=== PATIENT | female | born 1975 | race Caucasian/White ===

== ENCOUNTER → 2017-02-22 | Outpatient (CLI) | payer OTHER ==
[~2017-02-22] MED LIST: ACCUNEB SO1.25 MG/1 INH; CIPRO500 MG PO; FLEXERIL PO; LEVOTHYROXIN0.175 MG PO; NAPROSYN500 MG PO; PERCOCET PO; TRAMADOL 50 MG50 MG PO; ZOFRAN ODT4 MG DISSOLVE
== END ==
LOC: MRI 10:27
DX: S89.91XA Unspecified injury of right lower leg, initial encounter (principal); M25.461 Effusion, right knee; X58.XXXA Exposure to other specified factors, initial encounter; Y93.89 Activity, other specified; Y92.89 Other specified places as the place of occurrence of the external cause; Y99.8 Other external cause status

== ENCOUNTER → 2017-05-03 | Outpatient (CLI) | payer OTHER ==
[~2017-05-03] MED LIST changes: +IBUPROFEN 600600 M1 PO; +TIZANIDINE HCL4 MG PO; +ULTRAM 50MG TAB50 MG PO
== END ==
LOC: MRI 14:14
DX: G93.9 Disorder of brain, unspecified (principal); R51 Headache; M54.2 Cervicalgia

== ENCOUNTER → 2018-04-07 | Emergency (ER) | payer OTHER ==
[~2018-04-07] VITALS: Ht 170.2 cm; Wt 82.6 kg
[~2018-04-07] MED LIST changes: +CLEOCIN HCL150 MG PO; +IBUPROFEN 800800 M1 PO; +LINZESS145 MCG PO; +NORFLEX100 MG PO; +PERCOCET 5-3251 EACH PO; +SYNTHROID175 MCG PO; +VITAMIN D2000 UNIT PO
[2018-04-07 19:35] LABS: ABSOLUTE NEUTROPHILS 4.7 thou/uL (1.4-8.2); BASOPHILS 0.5 % (0.0-2.0); EOSINOPHILS 1.5 % (0.0-3.0); HEMATOCRIT 38.4 % (37.0-47.0); HEMOGLOBIN 13.2 gm/dL (12.0-15.0); LYMPHOCYTES 34.5 % (24.0-44.0); MCH 30.8 pg (26.0-34.0); MCHC 34.5 g/dL (28.0-37.0); MCV 89.4 fL (80.0-100.0); MONOCYTES 6.4 % (1.0-8.0); PLATELET COUNT 236 thou/uL (150-400); POLYS 57.1 % (36.0-66.0); RBC 4.29 mil/uL (4.20-5.00); RDW 12.6 % (10.5-14.5); WBC 8.2 thou/uL (4.0-11.0)
[2018-04-07 19:45] LABS: CALCIUM 9.5 mg/dL (8.5-10.1); CREATININE 0.8 mg/dL (0.6-1.0); POTASSIUM 3.8 mmol/L (3.5-5.1)
[2018-04-07 19:50] LABS: PROTIME 10.1 Seconds (9.3-11.4)
[2018-04-07 21:43] VITALS: BP 120/72
== END ==
LOC: ER 17:39
PROVIDERS: Emergency Medicine
DX: R51 Headache (principal); E34.8 Other specified endocrine disorders; R42 Dizziness and giddiness; F17.210 Nicotine dependence, cigarettes, uncomplicated; Z88.8 Allergy status to other drugs, medicaments and biological substances; Z88.0 Allergy status to penicillin; M19.90 Unspecified osteoarthritis, unspecified site; Z87.442 Personal history of urinary calculi; Z90.89 Acquired absence of other organs

== ENCOUNTER 2018-05-31 17:33 | Emergency (ER) | payer OTHER ==
[~2018-05-31] VITALS: Ht 170.2 cm; Wt 84.8 kg
--- NOTE | ~2018-05-31 | EKG ---
[address] [place] [address] ELECTROCARDIOGRAM REPORT Name: SLICK VERAS [facility] [id number] Admission: 05/31/18 Attend Phys: Discharge: 05/31/18 Date of : 77 Report #: [id number] THIS REPORT FOR: //name// 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
--- NOTE | ~2018-05-31 | EKG ---
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
[2018-05-31 19:35] LABS: ABSOLUTE NEUTROPHILS 9.8 thou/uL (1.4-8.2); BASOPHILS 0.8 % (0.0-2.0); HEMATOCRIT 39.7 % (37.0-47.0); HEMOGLOBIN 13.7 gm/dL (12.0-15.0); LYMPHOCYTES 23.4 % (24.0-44.0); MCH 31.5 pg (26.0-34.0); MCHC 34.5 g/dL (28.0-37.0); MCV 91.4 fL (80.0-100.0); MONOCYTES 7.3 % (1.0-8.0); PLATELET COUNT 309 thou/uL (150-400); POLYS 67.5 % (36.0-66.0); RBC 4.34 mil/uL (4.20-5.00); WBC 14.5 thou/uL (4.0-11.0)
[2018-05-31 19:46] LABS: ANION GAP 9 mmol/L (7-16); BUN 9 mg/dL (7-18); CALCIUM 9.7 mg/dL (8.5-10.1); CHLORIDE 103 mmol/L (98-107); CO2 29 mmol/L (21-32); GLUCOSE 72 mg/dL (74-106); POTASSIUM 3.3 mmol/L (3.5-5.1); SODIUM 141 mmol/L (136-145)
[2018-05-31 19:51] LABS: ALBUMIN 4.1 g/dL (3.4-5.0); SGOT 22 U/L (15-37); SGPT 55 U/L (30-65); TOTAL BILIRUBIN 0.3 mg/dL (<0.1-1.0); TOTAL PROTEIN 7.9 g/dL (6.4-8.2); TROPONIN-I <0.06 ng/mL (<0.06)
[2018-05-31 22:07] LABS: URINE BILIRUBIN NEGATIVE (Negative); URINE BLOOD 1+ (Negative); URINE CLARITY CLEAR; URINE COLOR YELLOW; URINE GLUCOSE-RANDOM* NEGATIVE (Negative); URINE KETONES NEGATIVE (Negative); URINE NITRITE-REFLEX NEGATIVE (Negative); URINE PROTEIN (DIPSTICK) NEGATIVE (Negative); URINE SPECIFIC GRAVITY <= 1.005 (1.005-1.035); URINE UROBILINOGEN 0.2 E.U./dl (0.2-1.0)
[2018-05-31 22:08] LABS: URINE LEUKOCYTES-REFLEX 1+ (Negative)
[2018-05-31 22:17] LABS: CASTS None Seen /LPF (None Seen); CRYSTALS None Seen /LPF (None Seen); SQUAMOUS 4-10 Moderate /LPF (0-3); URINE RBC 3-10 Few /HPF (0-2)
[2018-05-31 22:18] LABS: BACTERIA-REFLEX 1-9 Few /HPF (None Seen); URINE WBC-REFLEX 0-5 Rare /HPF (0-5)
[2018-05-31] MEDS ORDERED: TRAMADOL 50 MG50 MG PO (22:32)
[2018-05-31] MEDS ORDERED: VENTOLIN HFA 1818 GM INH (22:38)
[2018-05-31] MEDS ORDERED: TESSALON PERLE100 MG PO (22:38)
[2018-05-31] MEDS ORDERED: SYNTHROID200 MCG PO (22:40)
[2018-05-31 23:16] VITALS: BP 93/60
== END 2018-05-31 23:15 | disposition home or self-care (01) ==
LOC: ER 17:33
PROVIDERS: Physician Assistant
DX: J20.8 Acute bronchitis due to other specified organisms (principal); B97.89 Other viral agents as the cause of diseases classified elsewhere; E87.6 Hypokalemia; E03.9 Hypothyroidism, unspecified; F17.210 Nicotine dependence, cigarettes, uncomplicated; M19.90 Unspecified osteoarthritis, unspecified site; Z88.8 Allergy status to other drugs, medicaments and biological substances; Z86.718 Personal history of other venous thrombosis and embolism; Z88.0 Allergy status to penicillin; Z90.89 Acquired absence of other organs; Z87.442 Personal history of urinary calculi

== ENCOUNTER 2018-06-02 22:53 | Inpatient (IN) | payer OTHER ==
[~2018-06-02] VITALS: Ht 170.2 cm; Wt 84.8 kg
--- NOTE | ~2018-06-02 | 2DMMODE ---
[facility] [address] [place] [address] 2 D/M-MODE ECHOCARDIOGRAM Name: SILCK VERAS Room #: 209-P ADM IN M.R.#: [id number] Admission: 06/03/18 Attend Phys: Alannah Baker Discharge: Date of : 77 Date of Service: 06/04/1830 Report #: [id number] THIS REPORT FOR: //name// APPROVED REPORT Study performed: 06/04/2018 08:37:53 EXAM: Comprehensive 2D, Doppler, and color-flow Echocardiogram Patient Location: Echo lab Room #: 209 Status: routine BSA: 1.97 HR: 72 bpm BP: 106/67 mmHg Rhythm: NSR Other Information Study Quality: Adequate Indications Dyspnea Chest Pain 2D Dimensions RVDd: 31.92 mm IVSd: 8.28 (7-11mm) LVOT Diam: 19.56 (18-24mm) LVDd: 54.10 mm PWd: 7.71 (7-11mm) Ascending Ao: 30.69 (22-36mm) LVDs: 34.44 (25-40mm) Aortic Root: 27.39 mm IVC: 18.00 mm Volumes Left Atrial Volume (Systole) Single Plane 4CH: 70.42 mL Single Plane 2CH: 58.26 mL LA ESV Index: 36.00 mL/m2 Aortic Valve AoV Peak Christopher.: 1.37 m/s AO Peak Gr.: 7.48 mmHg LVOT Max P.44 mmHg LVOT Max V: 1.17 m/s MIKE Vmax: 2.56 cm2 Mitral Valve E/A Ratio: 1.2 MV Decel. Time: 229.53 ms [facility] [address] [place] [address] 2 D/M-MODE ECHOCARDIOGRAM Name: RITOSLICK R Room #: 209-P [facility].#: [id number] Admission: 06/03/18 Attend Phys: Alannah Baker Discharge: Date of : 77 Date of Service: 06/04/18 0930 Report #: [id number] E Max Christopher.: 0.87 m/s MV A Christopher.: 0.71 m/s MV PHT: 66.56 ms IVRT: 64.59 ms Pulmonary Valve PV Peak Christopher.: 1.04 m/s PV Peak Gr.: 4.34 mmHg Pulmonary Vein P Vein S: 0.67 m/s P Vein A: 0.20 m/s P Vein D: 0.39 m/s P Vein A Dur.: 96.9 msec P Vein S/D Ratio: 1.72 Left Ventricle The left ventricle is normal size. There is normal LV segmental wall motion. There is normal left ventricular wall thickness. Left ventricular systolic function is normal. The left ventricular ejection fraction is within the normal range. LVEF is 60-65%. The left ventricular diastolic function is normal. Right Ventricle The right ventricle is normal size. The right ventricular systolic function is normal. Atria The left atrium size is normal. The right atrium size is normal. Aortic Valve The aortic valve is normal in structure. No aortic regurgitation is present. There is no aortic valvular stenosis. Mitral Valve The mitral valve is normal in structure. There is no mitral valve regurgitation noted. No evidence of mitral valve stenosis. Tricuspid Valve The tricuspid valve is normal in structure. There is no tricuspid valve regurgitation noted. Pulmonic Valve The pulmonary valve is normal in structure. Trace pulmonic regurgitation. Great Vessels The aortic root is normal in size. IVC is normal in size and [facility] [address] [place] [address] 2 D/M-MODE ECHOCARDIOGRAM Name: SLICK VERAS Room #: 209-P [facility] IN .R.#: [id number] Admission: 06/03/18 Attend Phys: Alannah Baker Discharge: Date of : 77 Date of Service: 06/04/18929 Report #: [id number] collapses >50% with inspiration. Pericardium There is no pericardial effusion. <Conclusion> 1. Normal echocardiogram with Doppler. EF 65% 2. No pericardial effusion <ELECTRONICALLY SIGNED> By: Tim Núñez MD, FACC 06/04/18929 9 9 Tim Núñez MD, [facility]IN [facility] /INF
--- NOTE | ~2018-06-02 | EKG ---
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: MARIO : 1975 Requested By: Alannah Dupree Order Number: [id number] MD: Tim Núñez Measurements Intervals [place] Rate: 57 P: 52 [place]: 141 QRS: 39 QRSD: 91 T: 3 QT: 439 QTc: 428 Interpretive Statements Sinus bradycardia Abnormal R-wave progression, early transition Compared to ECG 06/03/2018 00:00:29 ST (T wave) deviation less prominent Electronically Signed On 06-04-2018 8:40:06 CDT by Tim Núñez [email or web address] <ELECTRONICALLY SIGNED> By: Tim Núñez MD, [facility] 06/04/18 0840 3 3 Tim Núñez MD, [facility] /EPI
--- NOTE | ~2018-06-02 | EKG ---
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
--- NOTE | ~2018-06-02 | CATHLAB ---
[facility] [address] [place] [address] INVASIVE PROCEDURE REPORT Name: SLICK VERAS Room #: 209-P DIS IN .R.#: [id number] Admission: 06/03/18 Attend Phys: Alannah Baker Discharge: 06/05/18 Date of : 77 Date of Service: 06/05/18 1246 Report #: [id number] THIS REPORT FOR: //name// APPROVED REPORT Study performed: 06/05/2018 07:28:51 Patient Details Patient Status: In-Patient Room #: 209 The patient is a 43 year-old female Event Personnel Fuentes Castrejon Counselor Supervisor, Ledy Aggarwal, MARKETING SENIOR RECRUITER Monitor, Adis Beverly RN RN, Lito Calderón RN, Jose Chiang Procedures Performed Art Access - R femoral artery* Left Heart Cath w/or w/o Coronaries [id number] [facility] [address] Initial Mod Sed Same Phys/QHP Gr5y [id number] Hemostasis with Manual pressure Indication Syncope, Positive stress test, Chest pain Risk Factors Hypercholesterolemia, Tobacco History () Procedure Narrative The Right Groin^ was infiltrated with 1% Lidocaine subcutaneous anesthesia. A PINNACLE 4FR Sheath #[id number] sheath was inserted into the RFA^. Coronary angiography was performed using coronary diagnostic catheters. The right coronary system was accessed and visualized with a JR4 catheter. The left coronary system was accessed and visualized with a JL4 catheter. The left ventricle was accessed and visualized with a angled pigtail catheter. Left ventricular/Aortic Valve gradient assessed via catheter pullback. Left ventriculogram was performed in 30 degree projection. Hemostasis was obtained with manual pressure following sheath removal without any complications. The patient tolerated the procedure well and there were no complications associated with the procedure. There was no hematoma. Intraoperative Conscious Sedation Sedation start time: 08:30 Case end Time: 08:57 [facility] [address] [address] INVASIVE PROCEDURE REPORT Name: SLICK VERAS Room #: 209-P [facility] IN M.R.#: [id number] Admission: 06/03/18 Attend Phys: Alannah Baker Discharge: 06/05/18 Date of : 77 Date of Service: 06/05/18 1246 Report #: [id number] Fentanyl 50 mcg Versed 1 mg Fluoro Time: 2.17 minutes Dose: DAP 3040.80 cGycm2 390 mGy Contrast Type and Amount: Visipaque 65 ml Coronary Angiography The patient's coronary anatomy is right dominant. Diagnostic Cath Left Main Patent vessel, with no flow-limiting lesions. LAD The LAD is a moderate size caliber vessel, traveling down the anterior wall and terminating at the apex. There are no flow-limiting lesions in the LAD. Diagonal 1 Small-caliber vessel, with no flow-limiting lesions. Circumflex Supplies one OM vessel. There are no flow-limiting lesions. OM1 Moderate size caliber vessel, supplies multiple branches as it travels down the lateral wall. There are no flow-limiting lesions. Right Coronary Dominant vessel, with no flow-limiting lesions. R PDA Patent vessel, with no flow-limiting lesions. RPLV Patent vessel, with no flow-limiting lesions. Left Ventriculography The left ventricle is normal in size with normal contractility. The left ventricular ejection fraction is estimated to be 55-60%. Hemodynamics The aortic pressure is 116/73 mmHg with a mean of 93 mmHg. The left ventricular pressure is 129/17 mmHg with a mean of mmHg. The left ventricular end diastolic pressure is 24 mmHg. Conclusion 1. Angiographically normal coronary arteries. 2. Normal LV systolic function. 3. Recommend medical therapy. <ELECTRONICALLY SIGNED> By: Fuentes Castrejon MD 06/05/18 1246 1246 1246 Fuentes Castrejon MD /INF
--- NOTE | ~2018-06-02 | EKG ---
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
--- NOTE | ~2018-06-02 | EKG ---
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: JENNIFER : 1975 Requested By: Brett Lopez Order Number: [id number] MD: Lei Gill Measurements Intervals [place] Rate: 90 P: 51 NE: 143 QRS: 17 QRSD: 94 T: -36 QT: 370 QTc: 453 Interpretive Statements Sinus rhythm Abnormal R-wave progression, early transition Borderline repolarization abnormality Compared to ECG 05/31/2018 21:36:24 No significant changes Electronically Signed On 06-03-2018 13:28:29 CDT by Lei Gill [email or web address] <ELECTRONICALLY SIGNED> By: Lei Gill MD 06/03/18 1328 0000 0000 Lei Gill MD /[place]
[~2018-06-02 22:53] MED LIST changes: +SYNTHROID200 MCG PO; +TESSALON PERLE100 MG PO; +VENTOLIN HFA 1818 GM INH
[2018-06-02 23:10] VITALS: BP 142/90
[2018-06-02] MEDS ORDERED: LOPRESSOR25 PO (23:15)
[2018-06-02 23:29] LABS: HEMATOCRIT 37.9 % (37.0-47.0); MCH 31.2 pg (26.0-34.0); MCHC 34.4 g/dL (28.0-37.0); MCV 90.7 fL (80.0-100.0); RBC 4.18 mil/uL (4.20-5.00); RDW 13.2 % (10.5-14.5); WBC 13.8 thou/uL (4.0-11.0)
[2018-06-02 23:33] LABS: ANION GAP 8 mmol/L (7-16); BUN 13 mg/dL (7-18); CHLORIDE 101 mmol/L (98-107); CO2 27 mmol/L (21-32); CREATININE 1.1 mg/dL (0.6-1.0); GLUCOSE 101 mg/dL (74-106); POTASSIUM 3.3 mmol/L (3.5-5.1); SODIUM 136 mmol/L (136-145)
[2018-06-02 23:41] LABS: ALBUMIN 4.2 g/dL (3.4-5.0); SGOT 23 U/L (15-37); SGPT 46 U/L (30-65); TOTAL BILIRUBIN 0.4 mg/dL (<0.1-1.0); TOTAL PROTEIN 7.9 g/dL (6.4-8.2); TROPONIN-I <0.06 ng/mL (<0.06)
[2018-06-03] VITALS (7 sets, daily range): BP systolic 99–136; BP diastolic 69–91
[2018-06-03 01:35] LABS: PROTIME 9.8 Seconds (9.3-11.4)
[2018-06-03] MEDS ORDERED: PERCOCET 10-321 EACH PO (02:24)
[2018-06-03] MEDS ORDERED: KLOR-CON 1010 MEQ PO (02:25)
[2018-06-03] MEDS ORDERED: REMERON15 MG PO (02:32)
[2018-06-03] MEDS ORDERED: LEVOXYL175 MCG PO (04:49)
[2018-06-03 06:11] LABS: CHOLESTEROL 224 mg/dL (<200); HDL CHOLESTEROL 32 mg/dL (>40); LDL CHOLESTEROL 169 mg/dL (<100); TRIGLYCERIDE 116 mg/dL (<150); VLDL 23 mg/dL (<40)
[2018-06-03 06:12] LABS: SERUM ASSESSMENT Clear
[2018-06-04 00:01] VITALS: BP 131/91; BP 92/61
[2018-06-04 05:38] VITALS: BP 106/67
[2018-06-04 08:25] VITALS: BP 127/77
[2018-06-04 12:05] VITALS: BP 118/66
[2018-06-04 16:10] VITALS: BP 92/54
[2018-06-04 20:14] VITALS: BP 119/71
[2018-06-05 00:17] VITALS: BP 96/46
[2018-06-05] MEDS ORDERED: PREDNISONE 20 M20 MG PO (11:29)
[2018-06-05] MEDS ORDERED: LEVAQUIN 500 M500 M2 PO (11:29)
[2018-06-05 11:37] VITALS: BP 96/46
[2018-06-05 11:45] VITALS: BP 117/73
== END 2018-06-05 12:10 | disposition home or self-care (01) | DRG 282 ==
LOC: ER 22:53 → EROBS 06-03 00:15 → 2N 06-03 00:15
PROVIDERS: Emergency Medicine; Nurse Practitioner Acute Care
PROC: B2111ZZ Fluoroscopy of Multiple Coronary Arteries using Low Osmolar Contrast (ICD-10-PCS; principal; 2018-06-05)
PROC: B2151ZZ Fluoroscopy of Left Heart using Low Osmolar Contrast (ICD-10-PCS; principal; 2018-06-05)
PROC: 4A023N7 Measurement of Cardiac Sampling and Pressure, Left Heart, Percutaneous Approach (ICD-10-PCS; principal; 2018-06-05)
DX: I21.4 Non-ST elevation (NSTEMI) myocardial infarction (principal); E89.0 Postprocedural hypothyroidism; F17.210 Nicotine dependence, cigarettes, uncomplicated; M19.90 Unspecified osteoarthritis, unspecified site; J40 Bronchitis, not specified as acute or chronic; R09.02 Hypoxemia; R10.813 Right lower quadrant abdominal tenderness; E78.5 Hyperlipidemia, unspecified; E87.6 Hypokalemia; Z88.0 Allergy status to penicillin; Z88.8 Allergy status to other drugs, medicaments and biological substances; Z87.442 Personal history of urinary calculi; Z90.710 Acquired absence of both cervix and uterus; Z86.718 Personal history of other venous thrombosis and embolism; Z85.43 Personal history of malignant neoplasm of ovary; Z82.49 Family history of ischemic heart disease and other diseases of the circulatory system; Z71.6 Tobacco abuse counseling
CPT/HCPCS: 10081

== ENCOUNTER 2018-06-24 05:23 | Emergency (ER) | payer OTHER ==
[~2018-06-24] VITALS: Ht 170.2 cm; Wt 84.4 kg
--- NOTE | ~2018-06-24 | EKG ---
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 06/25/18 08 4 4 Tim Núñez MD, [facility] /EPI
[~2018-06-24 05:23] MED LIST changes: +KLOR-CON 1010 MEQ PO; +LEVAQUIN 500 M500 M2 PO; +LEVOXYL175 MCG PO; +LOPRESSOR25 PO; +PERCOCET 10-321 EACH PO; +PREDNISONE 20 M20 MG PO; +REMERON15 MG PO
[2018-06-24 06:06] LABS: BASOPHILS 0.5 % (0.0-2.0); EOSINOPHILS 2.6 % (0.0-3.0); HEMATOCRIT 38.4 % (37.0-47.0); HEMOGLOBIN 13.3 gm/dL (12.0-15.0); LYMPHOCYTES 39.6 % (24.0-44.0); MCH 31.8 pg (26.0-34.0); MCHC 34.8 g/dL (28.0-37.0); MCV 91.5 fL (80.0-100.0); MONOCYTES 6.2 % (1.0-8.0); PLATELET COUNT 275 thou/uL (150-400); POLYS 51.1 % (36.0-66.0); RBC 4.19 mil/uL (4.20-5.00); RDW 13.3 % (10.5-14.5); WBC 7.9 thou/uL (4.0-11.0)
[2018-06-24 06:18] LABS: APTT 30.3 Seconds (24.5-32.8)
[2018-06-24 06:22] LABS: ANION GAP 7 mmol/L (7-16); BUN 9 mg/dL (7-18); CALCIUM 9.5 mg/dL (8.5-10.1); CHLORIDE 103 mmol/L (98-107); CO2 30 mmol/L (21-32); GLUCOSE 95 mg/dL (74-106); POTASSIUM 3.8 mmol/L (3.5-5.1); SODIUM 140 mmol/L (136-145)
[2018-06-24 06:27] LABS: ALBUMIN 4.2 g/dL (3.4-5.0); MAGNESIUM 2.1 mg/dL (1.8-2.4); SGOT 19 U/L (15-37); SGPT 46 U/L (30-65); TOTAL BILIRUBIN 0.3 mg/dL (<0.1-1.0); TOTAL PROTEIN 7.6 g/dL (6.4-8.2); TROPONIN-I <0.06 ng/mL (<0.06)
[2018-06-24 06:37] LABS: D-DIMER 0.67 ug/mLFEU (0.19-0.50)
[2018-06-24 08:20] VITALS: BP 128/94
== END 2018-06-24 08:22 | disposition home or self-care (01) ==
LOC: ER 05:23
PROVIDERS: Emergency Medicine
DX: R09.02 Hypoxemia (principal); R07.9 Chest pain, unspecified; R06.02 Shortness of breath; M19.90 Unspecified osteoarthritis, unspecified site; E78.5 Hyperlipidemia, unspecified; E03.9 Hypothyroidism, unspecified; R12 Heartburn; Z86.718 Personal history of other venous thrombosis and embolism; Z85.43 Personal history of malignant neoplasm of ovary; Z90.710 Acquired absence of both cervix and uterus; F17.210 Nicotine dependence, cigarettes, uncomplicated; Z88.0 Allergy status to penicillin; Z88.5 Allergy status to narcotic agent

== ENCOUNTER 2018-06-28 16:39 | Emergency (ER) | payer OTHER ==
[~2018-06-28] VITALS: Ht 170.2 cm; Wt 84.8 kg
--- NOTE | ~2018-06-28 | EKG ---
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
[2018-06-28 17:20] LABS: ABSOLUTE NEUTROPHILS 4.6 thou/uL (1.4-8.2); BASOPHILS 0.4 % (0.0-2.0); EOSINOPHILS 1.1 % (0.0-3.0); HEMATOCRIT 40.6 % (37.0-47.0); LYMPHOCYTES 41.6 % (24.0-44.0); MCHC 34.4 g/dL (28.0-37.0); MCV 92.9 fL (80.0-100.0); MONOCYTES 4.4 % (1.0-8.0); PLATELET COUNT 319 thou/uL (150-400); POLYS 52.5 % (36.0-66.0); RBC 4.38 mil/uL (4.20-5.00); RDW 13.6 % (10.5-14.5); WBC 8.8 thou/uL (4.0-11.0)
[2018-06-28 17:25] LABS: ANION GAP 11 mmol/L (7-16); BUN 7 mg/dL (7-18); CALCIUM 9.9 mg/dL (8.5-10.1); CHLORIDE 103 mmol/L (98-107); CO2 26 mmol/L (21-32); GLUCOSE 125 mg/dL (74-106); POTASSIUM 3.6 mmol/L (3.5-5.1); SODIUM 140 mmol/L (136-145)
[2018-06-28 17:33] LABS: ALBUMIN 4.5 g/dL (3.4-5.0); LIPASE 134 U/L (73-393); SGOT 21 U/L (15-37); SGPT 44 U/L (30-65); TOTAL BILIRUBIN 0.3 mg/dL (<0.1-1.0); TOTAL PROTEIN 8.3 g/dL (6.4-8.2); TROPONIN-I <0.06 ng/mL (<0.06)
[2018-06-28 17:35] LABS: APTT 30.2 Seconds (24.5-32.8); D-DIMER 0.21 ug/mLFEU (0.19-0.50)
[2018-06-28] MEDS ORDERED: METOPROLOL TART25 MG PO (20:05)
[2018-06-28 20:50] VITALS: BP 131/77
== END 2018-06-28 20:51 | disposition home or self-care (01) ==
LOC: ER 16:39
PROVIDERS: Physician Assistant
DX: R06.02 Shortness of breath (principal); F17.210 Nicotine dependence, cigarettes, uncomplicated; M19.90 Unspecified osteoarthritis, unspecified site; E03.9 Hypothyroidism, unspecified; E78.5 Hyperlipidemia, unspecified; Z90.710 Acquired absence of both cervix and uterus; Z86.718 Personal history of other venous thrombosis and embolism; Z85.43 Personal history of malignant neoplasm of ovary; Z88.8 Allergy status to other drugs, medicaments and biological substances; Z88.0 Allergy status to penicillin; Z87.442 Personal history of urinary calculi; Z90.89 Acquired absence of other organs

== ENCOUNTER 2019-05-24 19:19 | Inpatient (IN) | payer OTHER ==
[~2019-05-24] VITALS: Ht 170.2 cm; Wt 88.9 kg
[~2019-05-24 19:19] MED LIST changes: +METOPROLOL TART25 MG PO
[2019-05-24 19:29] VITALS: BP 120/69
[2019-05-24 20:15] LABS: ABSOLUTE NEUTROPHILS 4.8 thou/uL (1.4-8.2); BASOPHILS 0.4 % (0.0-2.0); EOSINOPHILS 3.4 % (0.0-3.0); HEMATOCRIT 36.9 % (37.0-47.0); HEMOGLOBIN 12.4 gm/dL (12.0-15.0); LYMPHOCYTES 36.2 % (24.0-44.0); MCH 31.3 pg (26.0-34.0); MCHC 33.6 g/dL (28.0-37.0); MCV 93.2 fL (80.0-100.0); MONOCYTES 7.8 % (1.0-8.0); PLATELET COUNT 261 thou/uL (150-400); POLYS 52.2 % (36.0-66.0); RBC 3.96 mil/uL (4.20-5.00); RDW 12.5 % (10.5-14.5); WBC 9.2 thou/uL (4.0-11.0)
[2019-05-24 20:16] LABS: URINE BILIRUBIN NEGATIVE (Negative); URINE BLOOD 1+ (Negative); URINE CLARITY CLEAR; URINE COLOR YELLOW; URINE GLUCOSE-RANDOM* NEGATIVE (Negative); URINE KETONES NEGATIVE (Negative); URINE NITRITE-REFLEX NEGATIVE (Negative); URINE PROTEIN (DIPSTICK) NEGATIVE (Negative); URINE SPECIFIC GRAVITY 1.025 (1.005-1.035); URINE UROBILINOGEN 0.2 E.U./dl (0.2-1.0)
[2019-05-24 20:18] LABS: URINE LEUKOCYTES-REFLEX 1+ (Negative)
[2019-05-24 20:24] LABS: CASTS None Seen /LPF (None Seen); CRYSTALS None Seen /LPF (None Seen); SQUAMOUS 4-10 Moderate /LPF (0-3)
[2019-05-24 20:24] LABS: ANION GAP 9 mmol/L (7-16); BUN 11 mg/dL (7-18); CALCIUM 9.5 mg/dL (8.5-10.1); CHLORIDE 106 mmol/L (98-107); CO2 29 mmol/L (21-32); CREATININE 0.7 mg/dL (0.6-1.0); GLUCOSE 119 mg/dL (74-106); POTASSIUM 3.8 mmol/L (3.5-5.1); SODIUM 144 mmol/L (136-145)
[2019-05-24 20:25] LABS: URINE WBC-REFLEX 6-15 Few /HPF (0-5)
[2019-05-24 20:26] LABS: BACTERIA-REFLEX 1-9 Few /HPF (None Seen); URINE RBC 0-2 Rare /HPF (0-2)
[2019-05-24 20:35] LABS: TROPONIN-I <0.06 ng/mL (<0.06)
[2019-05-24 23:01] VITALS: BP 124/74
[2019-05-24 23:15] VITALS: BP 112/67
--- NOTE | 2019-05-24 23:31 | NUR ---
Pt. admitted to the unit from the emergency room accompanied by staff and daughter. She is alert and oriented. Admission assessment and history is completed. Pt. c/o pain to her neck and right side of abdomen. Spoke to Sarah SHIELDS was on the unit and she will put some orders in the computer.
[2019-05-24 23:40] VITALS: BP 119/78
[2019-05-25 03:14] VITALS: BP 125/81
[2019-05-25 05:37] LABS: HEMOGLOBIN 11.9 gm/dL (12.0-15.0); MCH 31.8 pg (26.0-34.0); MCV 93.4 fL (80.0-100.0); RBC 3.75 mil/uL (4.20-5.00); RDW 12.4 % (10.5-14.5); WBC 6.4 thou/uL (4.0-11.0)
--- NOTE | 2019-05-25 05:46 | NUR ---
Pt. rested quietly during at intervals during the night when checked on during frequent rounds. C/o indigestion and GI cocktail given (see emar) with relief. Pt. had pain meds jfor c/o pain to her neck and right side of abdomen (see emar) with some relief noted. Pt. c/o some weakness and encouraged to use call light when needing assistance.
[2019-05-25 05:53] LABS: CREATININE 0.6 mg/dL (0.6-1.0)
[2019-05-25 07:07] VITALS: BP 101/60
--- NOTE | 2019-05-25 11:55 | EKG ---
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 : 1975 Requested By: Lev Richmond Order Number: [id number] MD: Tim Núñez Measurements Intervals [place] Rate: 84 P: 64 [place]: 142 QRS: 39 QRSD: 89 T: 21 QT: 360 QTc: 426 Interpretive Statements Sinus rhythm Normal tracing Compared to ECG 06/28/2018 17:06:54 Sinus tachycardia no longer present ST (T wave) deviation no longer present Electronically Signed On 05-25-2019 11:55:16 CDT by Tim Núñez [email or web address] ��������������������������������������������� <ELECTRONICALLY SIGNED> ���������������������������������������� By: Tim Núñez MD, [facility] ��������������������������������������������� 05/25/19 1155 35 35 Tim Núñez MD, [facility] /EPI
[2019-05-25 13:55] VITALS: BP 100/60
[2019-05-25 16:16] VITALS: BP 117/69
--- NOTE | 2019-05-25 18:27 | NUR ---
PT HAS REPORTED RLQ ABD PAIN 8/10 THAT RADIATES AROUND TO BACK...SHE ALSO HAS CHRONIC HEADACHES AND NECK PAIN...
[2019-05-25 21:13] VITALS: BP 117/79
--- NOTE | 2019-05-26 03:52 | NUR ---
UP WITH STEADY GAIT IN PENNY AND ROOM. MAINTAIN SAFE ENVIRONMENT. WORKING ON GOALS AND PLAN OF CARE FOR NOC. PROGRESSING SLOWLY TOWARDS DISCHARGE GOALS. PAIN MEDICATION AND MUSCLE RELAXANT GIVEN LAST NOC WITH NOTED RELIEF. FRIEND REMAINS AT BEDSIDE. CONTINUE TO ASSES CLOSELY.
[2019-05-26 04:08] VITALS: BP 84/50; BP 95/61
[2019-05-26 07:20] VITALS: BP 101/64
[2019-05-26] MEDS ORDERED: DEPAKOTE 250MG250 M1 PO (10:16)
[2019-05-26] MEDS ORDERED: CEFDINIR300 MG PO (10:16)
[2019-05-26 11:47] VITALS: BP 119/82
[2019-05-26 16:05] VITALS: BP 122/79
[2019-05-26 19:20] VITALS: BP 119/73
--- NOTE | 2019-05-26 20:12 | NUR ---
ASSUMED PATIENT CARE AT 0700. A/O X4. UP AD AGUSTIN . C/O RLQ PAIN. NO N/V. SLOWLY TOWARDS POC GOALS.
[2019-05-27 03:45] VITALS: BP 123/81
--- NOTE | 2019-05-27 06:00 | NUR ---
AWAKE AND ALERT. HAS SLEPT AT INTERVALS TONIGHT. CONT TO C/O OF ABD PAIN. UP WALKING IN THE HALLS. WILL CONT TO MONITOR.
[2019-05-27 07:20] VITALS: BP 107/70
[2019-05-27] MEDS ORDERED: CEFDINIR300 MG PO (10:42)
[2019-05-27 10:50] VITALS: BP 107/70
--- NOTE | 2019-05-27 11:37 | NUR ---
PATIENT ALERT AND ORIENTED AND HAS DENIED PAIN, VITALS STABLE. TOLERTING DIET W/O NAUSEA. UP AD AGUSTIN AND HAS STEADY GAIT. ORDERS TO DC HOME. IV DC'D AND NEW PRESCRIPTIONS AND DISCHARGE INSTRUCTIONS GIVEN TO PATIENT AND DENIES ANY QNS. DECLINED W/C TO GET TO HER RIDE STATING SHE WANTS TO WALK OUT OUT WITH HER DAUGHTER.
== END 2019-05-27 12:40 | disposition home or self-care (01) | DRG 103 ==
LOC: ER 19:19 → EROBS 22:21 → 3W 22:21
PROVIDERS: Nurse Practitioner; ADMIT Internal Medicine
DX: R51 Headache (principal); N39.0 Urinary tract infection, site not specified; R07.89 Other chest pain; M19.90 Unspecified osteoarthritis, unspecified site; E89.0 Postprocedural hypothyroidism; E78.5 Hyperlipidemia, unspecified; F17.210 Nicotine dependence, cigarettes, uncomplicated; R63.4 Abnormal weight loss; Z68.30 Body mass index [BMI] 30.0-30.9, adult; I25.2 Old myocardial infarction; Z87.442 Personal history of urinary calculi; Z85.43 Personal history of malignant neoplasm of ovary; Z86.718 Personal history of other venous thrombosis and embolism; Z90.710 Acquired absence of both cervix and uterus; Z79.899 Other long term (current) drug therapy; Z88.0 Allergy status to penicillin; Z88.8 Allergy status to other drugs, medicaments and biological substances; Z82.49 Family history of ischemic heart disease and other diseases of the circulatory system
CPT/HCPCS: 10879

== ENCOUNTER 2019-08-21 09:13 | Emergency (ER) | payer OTHER ==
[~2019-08-21] VITALS: Ht 170.2 cm; Wt 71.7 kg
[~2019-08-21 09:13] MED LIST changes: +CEFDINIR300 MG PO; +DEPAKOTE 250MG250 M1 PO
[2019-08-21 12:06] VITALS: BP 123/81
== END 2019-08-21 12:06 | disposition home or self-care (01) ==
LOC: ER 09:13
DX: R51 Headache (principal); R11.2 Nausea with vomiting, unspecified; M19.90 Unspecified osteoarthritis, unspecified site; I25.2 Old myocardial infarction; F17.210 Nicotine dependence, cigarettes, uncomplicated; Z90.89 Acquired absence of other organs; Z90.710 Acquired absence of both cervix and uterus; Z95.2 Presence of prosthetic heart valve; Z87.442 Personal history of urinary calculi; Z85.43 Personal history of malignant neoplasm of ovary; Z88.5 Allergy status to narcotic agent; Z88.0 Allergy status to penicillin

== ENCOUNTER 2020-03-02 10:31 | Emergency (ER) | payer OTHER ==
[~2020-03-02] VITALS: Ht 170.2 cm; Wt 76.2 kg
[2020-03-02 12:57] LABS: ABSOLUTE NEUTROPHILS 4.1 thou/uL (1.4-8.2); BASOPHILS 0.6 % (0.0-2.0); HEMATOCRIT 39.5 % (37.0-47.0); HEMOGLOBIN 13.4 gm/dL (12.0-15.0); LYMPHOCYTES 26.1 % (24.0-44.0); MCH 32.4 pg (26.0-34.0); MCV 95.5 fL (80.0-100.0); MONOCYTES 5.9 % (1.0-8.0); PLATELET COUNT 229 thou/uL (150-400); POLYS 66.4 % (36.0-66.0); RBC 4.14 mil/uL (4.20-5.00); RDW 13.1 % (10.5-14.5); WBC 6.1 thou/uL (4.0-11.0)
[2020-03-02 13:00] LABS: ANION GAP 10 mmol/L (7-16); BUN 7 mg/dL (7-18); CALCIUM 8.7 mg/dL (8.5-10.1); CHLORIDE 107 mmol/L (98-107); CO2 24 mmol/L (21-32); CREATININE 0.9 mg/dL (0.6-1.0); GLUCOSE 93 mg/dL (74-106); POTASSIUM 3.9 mmol/L (3.5-5.1); SODIUM 141 mmol/L (136-145)
[2020-03-02 13:12] LABS: DIRECT BILIRUBIN < 0.1 mg/dL (<0.1-0.2); LIPASE 78 U/L (73-393); SGOT 17 U/L (15-37); SGPT 30 U/L (30-65); TOTAL BILIRUBIN 0.3 mg/dL (0.2-1.0); TOTAL PROTEIN 7.1 g/dL (6.4-8.2); TROPONIN-I <0.06 ng/mL (<0.06)
[2020-03-02] MEDS ORDERED: MOBIC15 MG PO (13:53)
[2020-03-02] MEDS ORDERED: GUAIFEN-CODEINE10 ML PO (13:53)
[2020-03-02] MEDS ORDERED: ZOFRAN ODT4 MG PO (13:53)
[2020-03-02 14:04] VITALS: BP 106/65
== END 2020-03-02 14:04 | disposition home or self-care (01) ==
LOC: ER 10:31
PROVIDERS: Emergency Medicine
DX: R05 Cough (principal); R50.9 Fever, unspecified; R11.2 Nausea with vomiting, unspecified; R19.7 Diarrhea, unspecified; E78.5 Hyperlipidemia, unspecified; I25.2 Old myocardial infarction; F17.210 Nicotine dependence, cigarettes, uncomplicated; Z03.818 Encounter for observation for suspected exposure to other biological agents ruled out; Z86.72 Personal history of thrombophlebitis; Z90.89 Acquired absence of other organs; Z79.899 Other long term (current) drug therapy; Z88.0 Allergy status to penicillin; Z88.5 Allergy status to narcotic agent; Z88.8 Allergy status to other drugs, medicaments and biological substances